=== PATIENT | female | born 1940 | race African-American/Black ===

== ENCOUNTER → 2016-09-20 | Outpatient (CLI) | payer MEDICARE, OTHER | LOC: RAD 11:03 | PROVIDERS: ATTEND Internal Medicine Medical Oncology | DX: C50.919 Malignant neoplasm of unspecified site of unspecified female breast (principal) | CPT/HCPCS: 78306; A9503; Q9969 ==

== ENCOUNTER → 2016-10-26 | Outpatient (CLI) | payer MEDICARE, OTHER ==
--- NOTE | 2016-10-26 18:15 | RADIOLOGY REPORT (SQ) ---
EXAM DESCRIPTION: CHEST PA/LAT COMPLETED DATE/TIME: 10/26/2016 5:51 pm REASON FOR STUDY: COUGH COMPARISON: November 2011 EXAM PARAMETERS: NUMBER OF VIEWS: two views TECHNIQUE: Digital Frontal and Lateral radiographic views of the chest acquired. RADIATION DOSE: NA LIMITATIONS: none FINDINGS: LUNGS AND PLEURA: No opacities, masses or pneumothorax. No pleural effusion. There are so me minimal linear densities in the right lung base which could represent subsegmental atelectasis or scarring. MEDIASTINUM AND HILAR STRUCTURES: No masses or contour abnormalities. HEART AND VASCULAR STRUCTURES: The configuration of the heart and mediastinal structures is unchanged . BONES: Thoracolumbar scoliosis is again identified with associated degenerative changes. HARDWARE: None in the chest. OTHER: Surgical clips are again identified in axillary region which are more numerous on the right as compared to the left IMPRESSION: No significant interval change. No acute findings. Other findings as noted above. TECHNICAL DOCUMENTATION: JOB ID: [id number] [employer]- All Rights Reserved
== END ==
LOC: RAD 17:35
PROVIDERS: ATTEND Family Medicine
DX: R05 Cough (principal)
CPT/HCPCS: 71020

== ENCOUNTER 2016-10-30 01:16 | Emergency (ER) | payer MEDICARE, OTHER ==
--- NOTE | 2016-10-30 04:09 | RADIOLOGY REPORT (SQ) ---
EXAM DESCRIPTION: HIP RIGHT AP/LATERAL COMPLETED DATE/TIME: 10/30/2016 3:50 am REASON FOR STUDY: fall injury COMPARISON: Left hip x-ray 11/23/2015. NUMBER OF VIEWS: Two views. TECHNIQUE: AP pelvis and additional frog-leg view of the right hip. LIMITATIONS: None. FINDINGS: There is no acute fracture or dislocation. The pelvic ring is intact. The bilateral hip joints are maintained. Degenerative changes in the visualized lower lumbar spine, at the symphysis p ubis and at the bilateral sacroiliac joints. Surgical clips are noted in the pelvis. IMPRESSION: No radiographic evidence of acute injury. TECHNICAL DOCUMENTATION: JOB ID: [id number] OH-64 2010 [employer]- All Rights Reserved
--- NOTE | 2016-10-30 04:25 | RADIOLOGY REPORT (SQ) ---
EXAM DESCRIPTION: RIBS LEFT W/PA CHEST COMPLETED DATE/TIME: 10/30/2016 3:50 am REASON FOR STUDY: fall injury . Posterior rib pain just inferior to the scapula. COMPARISON: Chest x-ray 10/26/2016. TECHNIQUE: Frontal view of the chest and additional views of the left ribs acquired. NUMBER OF VIEWS: Three view. LIMITATIONS: None. FINDINGS: FRONTAL CXR: No pneumothorax. No pleural effusion. No atelectasis or infiltrates. RIBS: No displaced rib fractures. OTHER: There is thoracolumbar scoliosis. Surgical clips are seen at the bilateral axillary regions. Partially visualized orthopedic hardware in the lower cervical spine. IMPRESSION: No pneumothorax. No displaced left-sided rib fractures. COMMENT: SITE OF TRAUMA/COMPLAINT MARKED/STAMP COMPLETED: NO. TECHNICAL DOCUMENTATION: JOB ID: [id number] OH-64 2010 [employer]- All Rights Reserved
--- NOTE | 2016-10-30 04:55 | RADIOLOGY REPORT (SQ) ---
EXAM DESCRIPTION: ANKLE RIGHT COMPLETE COMPLETED DATE/TIME: 10/30/2016 3:50 am REASON FOR STUDY: fall injury . Pain on the medial aspect. COMPARISON: None. NUMBER OF VIEWS: Three views. TECHNIQUE: AP, lateral, and oblique radiographic images acquired of the right ankle. LIMITATIONS: None. FINDINGS: MINERALIZATION: Normal. BONES: Faint calcifications are seen at the medial aspect of the talus and calcaneus on the AP view. Linear calcification at the plantar aspect of the calcaneus. Calcification at the insertion of the Achilles tendon. SOFT TISSUES: Diffuse soft tissue swelling at the ankle. No radiopaque foreign body. IMPRESSION: Soft tissue swelling at the right ankle. Faint calcifications at the medial aspect of t he talus and calcaneus, and linear calcification at the plantar aspect of the calcaneus, may represen t avulsion fractures. Please correlate with point tenderness. Calcification at the insertion of the Achilles tendon at the calcaneus, suggestive of tendonitis. TECHNICAL DOCUMENTATION: JOB ID: [id number] OH-[id number] 2010 [employer]- All Rights Reserved
--- NOTE | 2016-10-30 06:04 | ER Document Report ---
HPI - HPI Patient complains to provider of: stumbled and fell Onset: Just prior to arrival - midnight Onset/Duration: Sudden Pain Level: 2 Context: 76 yo was trying to get a water bottle out of case and when she stood up, stumbled due to difficulty bearing weight on left ankle due to arthritis, swelling. Also has pain in left lateral lower thoracic lumbar back-hx of severe scoliosis. Has walker but uses cane intdoors. Daughter is here with her and considering taking her [facility] with her. Dr koenig is PCP and she takes ultram for pain which is not helping much. Associated Symptoms: None Exacerbated by: Walking Relieved by: Denies Similar symptoms previously: Yes Recently seen / treated by doctor: No - ROS ROS below otherwise negative: Yes Systems Reviewed and Negative: Yes All other systems reviewed and negative - DERM Skin Color: Normal Past Medical History - General Information source: Patient - Social History Smoking Status: Never Smoker Frequency of alcohol use: None Drug Abuse: None Lives with: Alone Family History: Reviewed & Not Pertinent - Past Medical History Cardiac Medical History: Reports: Hx Hypercholesterolemia, Hx Hypertension Pulmonary Medical History: Reports: Hx COPD, Hx Pneumonia Endocrine Medical History: Reports: Hx Diabetes Mellitus Type 2 Renal/ Medical History: Denies: Hx Peritoneal Dialysis GI Medical History: Reports: Hx Gastroesophageal Reflux Disease Musculoskeltal Medical History: Reports Hx Arthritis, Reports Other - scoliosis Past Surgical History: Reports: Hx Hysterectomy, Hx Mastectomy - cancer, Hx Tonsillectomy Vertical Provider Document - CONSTITUTIONAL Agree With Documented VS: Yes Exam Limitations: No Limitations General Appearance: Mild Distress - when trying to ambulate - INFECTION CONTROL TRAVEL OUTSIDE OF THE [place] IN LAST 30 DAYS: No - HEENT HEENT: Normal ENT Exam - NECK Neck: Supple - RESPIRATORY Respiratory: Breath Sounds Normal, No Respiratory Distress O2 Sat by Pulse Oximetry: 92 - CARDIOVASCULAR Cardiovascular: Regular Rate, Regular Rhythm - GI/ABDOMEN Gastrointestinal: Abdomen Soft, Abdomen Non-Tender - MUSCULOSKELETAL/EXTREMETIES Musculoskeletal/Extremeties: Eccymosis - small red burise over low lumbar back that is mild tender. negative: Tender - left lower lateral ribs Notes: non hot swelling to right ankle (there before the fall) - NEURO Level of Consciousness: Awake, Alert Motor/Sensory: No Motor Deficit, No Sensory Deficit - DERM Integumentary: Warm, Dry Course - Re-evaluation Re-evalutation: 10/30/16 07:54 pt able to walk with her walker now with much less pain after the percocet started to work. 10/30/16 17:15 - Vital Signs Vital signs: Temp Pulse Resp BP Pulse Ox 99.1 F 76 18 139/84 H 92 10/30/16 01:24 10/30/16 01:24 10/30/16 01:24 10/30/16 01:24 10/30/16 01:24 Discharge - Discharge Clinical Impression: right ankle pain, Arthritis, left posterior lower back pain Scoliosis Qualifiers: Scoliosis type: idiopathic Idiopathic scoliosis type: other Spinal region: lumbar Qualified Code(s): M41.26 - Other idiopathic scoliosis, lumbar region Fall Qualifiers: Encounter type: initial encounter Qualified Code(s): W19.XXXA - Unspecified fall, initial encounter Condition: Good Disposition: HOME, SELF-CARE Instructions: Arthritis ([facility]) Additional Instructions: use your walker only DO NOT TAKE THE ULTRAM SINCE YOU ARE TAKING HYDROCODONE FOR PAIN see dr. koenig on monday for recheck to er if worse kenneth wrap to right ankle for support Prescriptions: Hydrocodone Bit/Acetaminophen [Hydrocodon-Acetaminophen 5-325] 1 each PO Q4HP PRN #30 tablet PRN Reason: Referrals: ANTHONY KOENIG MD [Primary Care Provider] - 10/31/16
[2016-10-30] MEDS ORDERED: OXYCODONE-ACETAMINOPHEN 5-325 MG TABLET PO ONE (06:31)
[2016-10-30 07:38] VITALS: BP 134/74
[2016-10-30] MEDS ORDERED: HYDROCODONE/ACETAMINOPHEN 5-325 MG 6 TAB/DSPK PO PRN (07:51)
== END 2016-10-30 08:08 | disposition home or self-care (01) ==
LOC: ER 01:16
DX: M41.26 Other idiopathic scoliosis, lumbar region (principal); M54.5 Low back pain; M25.572 Pain in left ankle and joints of left foot; M19.072 Primary osteoarthritis, left ankle and foot; M79.89 Other specified soft tissue disorders; M54.6 Pain in thoracic spine
CPT/HCPCS: 99283; 73610; 73502; 71101; A9270

== ENCOUNTER → 2016-11-28 | Outpatient (CLI) | payer MEDICARE, OTHER ==
--- NOTE | 2016-11-28 14:54 | RADIOLOGY REPORT (SQ) ---
EXAM DESCRIPTION: CHEST PA/LATERAL COMPLETED DATE/TIME: 11/28/2016 2:42 pm REASON FOR STUDY: COUGH M25.559 PAIN IN UNSPECIFIED HIP R05 COUGH M25.571 PAIN IN RIGHT ANKLE AND JOINTS OF RIGHT FOOT COMPARISON: 10/26/2016 NUMBER OF VIEWS: Two view TECHNIQUE: Frontal and lateral radiographic images of the chest acquired. LIMITATIONS: Wheelchair. FINDINGS: LUNGS AND PLEURA: Subsegmental airspace disease in the left lower lobe MEDIASTINUM AND HILAR STRUCTURES: Stable heart size and mediastinal structures. HEART AND VASCULAR STRUCTURES: Stable appearance. BONES: No acute findings. HARDWARE: Axillary clips. OTHER: No other significant finding. IMPRESSION: Atelectasis or early pneumonia left lower lobe. TECHNICAL DOCUMENTATION: JOB ID: [id number] [employer]- All Rights Reserved
--- NOTE | 2016-11-28 14:56 | RADIOLOGY REPORT (SQ) ---
EXAM DESCRIPTION: HIPS BILATERAL COMPLETED DATE/TIME: 11/28/2016 2:42 pm REASON FOR STUDY: PAIN IN UNSPEC HIP M25.559 PAIN IN UNSPECIFIED HIP R05 COUGH M25.571 PAIN IN RI GHT ANKLE AND JOINTS OF RIGHT FOOT COMPARISON: None. NUMBER OF VIEWS: Three views. TECHNIQUE: AP pelvis and additional frog-leg view of the right and left hip. LIMITATIONS: None. FINDINGS: There is joint space narrowing in both hips, left greater than right. No large osteophyte s. No evidence of AVN. IMPRESSION: Osteoarthritis. TECHNICAL DOCUMENTATION: JOB ID: [id number] [employer]- All Rights Reserved
--- NOTE | 2016-11-28 15:00 | RADIOLOGY REPORT (SQ) ---
EXAM DESCRIPTION: ANKLE RIGHT COMPLETE COMPLETED DATE/TIME: 11/28/2016 2:42 pm REASON FOR STUDY: PAIN IN RIGHT ANKLE AND JOINTS OF RIGHT FOOT M25.559 PAIN IN UNSPECIFIED HIP R05 COUGH M25.571 PAIN IN RIGHT ANKLE AND JOINTS OF RIGHT FOOT COMPARISON: 10/30/2016 NUMBER OF VIEWS: Three views. TECHNIQUE: AP, lateral, and oblique radiographic images acquired of the right ankle. LIMITATIONS: None. FINDINGS: MINERALIZATION: Normal. BONES: No acute fracture or dislocation. No worrisome bone lesions. JOINTS: No effusions. SOFT TISSUES: Faint soft tissue calcifications for cyst with no real interval change. There is consi derable soft tissue swelling around the ankle OTHER: No other significant finding. IMPRESSION: Soft tissue swelling with no fracture. Faintly defined soft tissue calcifications are u nchanged. TECHNICAL DOCUMENTATION: JOB ID: [id number] [employer]- All Rights Reserved
--- NOTE | 2016-11-28 15:02 | RADIOLOGY REPORT (SQ) ---
EXAM DESCRIPTION: FOOT RIGHT COMPLETE COMPLETED DATE/TIME: 11/28/2016 2:42 pm REASON FOR STUDY: PAIN IN RIGHT ANKLE AND JOINTS OF RIGHT FOOT M25.559 PAIN IN UNSPECIFIED HIP R05 COUGH M25.571 PAIN IN RIGHT ANKLE AND JOINTS OF RIGHT FOOT COMPARISON: None. NUMBER OF VIEWS: Three views. TECHNIQUE: AP, lateral and oblique radiographic images acquired of the right foot. LIMITATIONS: None. FINDINGS: MINERALIZATION: Normal. BONES: No acute fracture or dislocation. No worrisome bone lesions. JOINTS: There is marked hallux valgus. SOFT TISSUES: Soft tissue swelling around the ankle. Faintly defined soft tissue calcifications infe rior to the medial malleolus in the distal Achilles tendon adjacent to the plantar aspect of the calc aneus are once again seen. OTHER: No other significant finding. IMPRESSION: 1. Hallux valgus. 2. Soft tissue calcifications that are stable. Achilles and plantar tendinopathy are suggested. Po ssible prior soft tissue injury to the medial ligaments of the ankle appear TECHNICAL DOCUMENTATION: JOB ID: [id number] [employer]- All Rights Reserved
== END ==
LOC: OD 13:24
PROVIDERS: ATTEND Family Medicine
DX: M25.551 Pain in right hip (principal); M25.552 Pain in left hip; R05 Cough; M25.571 Pain in right ankle and joints of right foot
CPT/HCPCS: 71020; 73522

== ENCOUNTER 2016-11-30 13:49 | Inpatient (IN) | payer MEDICARE, OTHER ==
[2016-11-30] MEDS ORDERED: IPRATROPIUM/ALBUTEROL 0.5-2.5 MG/3 ML AMPUL NEB PRN (14:01)
[2016-11-30] MEDS ORDERED: GUAIFENESIN SYRP 200 MG/10 ML UDC PO PRN (14:01)
--- NOTE | 2016-11-30 14:59 | RADIOLOGY REPORT (SQ) ---
EXAM DESCRIPTION: CHEST PA/LAT COMPLETED DATE/TIME: 11/30/2016 2:42 pm REASON FOR STUDY: pnemonia COMPARISON: 10/26/2016 EXAM PARAMETERS: NUMBER OF VIEWS: two views TECHNIQUE: Digital Frontal and Lateral radiographic views of the chest acquired. RADIATION DOSE: NA LIMITATIONS: none FINDINGS: LUNGS AND PLEURA: No opacities, masses or pneumothorax. No pleural effusion. MEDIASTINUM AND HILAR STRUCTURES: No masses or contour abnormalities. HEART AND VASCULAR STRUCTURES: Heart normal size. No evidence for failure. BONES: No acute findings. HARDWARE: There are surgical clips in the right axilla. OTHER: No other significant finding. IMPRESSION: NO SIGNIFICANT RADIOGRAPHIC FINDING IN THE CHEST. TECHNICAL DOCUMENTATION: JOB ID: [id number] [employer]- All Rights Reserved
[2016-11-30] MEDS ORDERED: AZITHROMYCIN 250 MG TABLET PO ONE (15:00)
[2016-11-30 15:21] LABS: ABSOLUTE LYMPHOCYTES (AUTO) 0.7 10^3/uL (0.5-4.7); ABSOLUTE MONOCYTES (AUTO) 0.7 10^3/uL (0.1-1.4); ABSOLUTE NEUT (AUTO) 7.6 10^3/uL (1.7-8.2); BASOPHILS % (AUTO) 0.1 % (0-2); HEMOGLOBIN 10.3 g/dL (12.0-15.5); HGB HCT DIFFERENCE -2.1; LYMPHOCYTES % (AUTO) 7.6 % (13-45); MEAN CORPUSCULAR HEMOGLOBIN 20.7 pg (27.0-33.4); MEAN CORPUSCULAR HGB CONC 31.2 g/dL (32.0-36.0); MEAN CORPUSCULAR VOLUME 66 fl (80-97); MONOCYTES % (AUTO) 7.6 % (3-13); RED BLOOD COUNT 4.97 10^6/uL (3.72-5.28); RED CELL DISTRIBUTION WIDTH 16.5 % (11.5-14.0); SEGMENTED NEUTROPHILS % (AUTO) 84.7 % (42-78)
[2016-11-30 15:33] LABS: ALANINE AMINOTRANSFERASE 29 U/L (9-52); ALBUMIN 3.5 g/dL (3.5-5.0); ALKALINE PHOSPHATASE 81 U/L (38-126); ANION GAP 12 (5-19); ASPARTATE AMINO TRANSFERASE 26 U/L (14-36); BILIRUBIN,DIRECT 0.3 mg/dL (0.0-0.4); BLOOD UREA NITROGEN 5 mg/dL (7-20); CARBON DIOXIDE 30 mmol/L (22-30); CHLORIDE 87 mmol/L (98-107); CREATINE KINASE 154 U/L (30-135); CREATININE RESULT 0.51 mg/dL (0.52-1.25); GLUCOSE 111 mg/dL (75-110); POTASSIUM 3.2 mmol/L (3.6-5.0); TOTAL PROTEIN 7.1 g/dL (6.3-8.2)
[2016-11-30 15:48] LABS: CALCIUM 9.4 mg/dL (8.4-10.2)
--- NOTE | 2016-11-30 15:54 | PDOC H&P ---
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 This is a 76-year-old female with a history of the type 2 diabetes history of the hypertension and severe osteoarthritis and a history of the bilateral breast cancerAnd a spinal stenosis and multiple other medical problem came to my office last week because of the cough and a fever and generalized weakness and ankle swellingAnd the patient's had a outpatient chest x-ray was done with so the questionable left-sided pneumoniaAnd patient was started on the Keflex and Zithromax Patient's also had a colonoscopy done today and according to the GI was all stable but patient is feeling very weak and came to the in my ofAnd according to the Daughter patient unable to walk and patient still have a persistent fever and patient still complaining of a cough and decided to admit in the hospital for further IV antibiotic and further evaluations Patient have a significant history of the breast cancers status post surgery and patient have a recently a PET scan was done was all stable and further workup done by oncology Dr. 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 Patient also had a C-spine surgery done in 2011 for the severe spinal stenosis Patients denied any chest pain denied any shortness of the breath Patient stopped taking the Celebrex and hydrochlorothiazide and other medications since last several days due to the upcoming colonoscopy and the Celebrex was stopped almost a week they may be a contributed patient have a some swelling in the joint Past Medical History Cardiac Medical History: Reports: Hyperlipidema, Hypertension Pulmonary Medical History: Reports: Chronic Obstructive Pulmonary Disease (COPD) , Pneumonia Endocrine Medical History: Reports: Diabetes Mellitus Type 2, Hypothyroidism Malignancy Medical History: Reports: Breast Cancer GI Medical History: Reports: Gastroesophageal Reflux Disease Musculoskeltal Medical History: Reports: Arthritis Hematology: Reports: Anemia Past Surgical History Past Surgical History: Reports: Hysterectomy, Mastectomy - cancer, Tonsillectomy Social History Information Source: Patient Lives with: Alone, Family Smoking Status: Never Smoker Frequency of Alcohol Use: None Hx Recreational Drug Use: No Hx Prescription Drug Abuse: No Family History Family History: Reviewed & Not Pertinent Parental Family History Reviewed: Yes Children Family History Reviewed: Yes Sibling(s) Family History Reviewed.: Yes Medication/Allergy Home Medications: Ascorbic Acid [Vitamin C] 04/06/12 Atenolol [Tenormin 0.5 mg/1 mL] 0.5 mg IV 04/06/12 Atorvastatin Calcium [Lipitor 10 mg Tablet] 04/06/12 Celecoxib [Celebrex 50 mg Capsule] 04/06/12 Exemestane [Aromasin] 04/06/12 Fexofenadine HCl [Joi Odt] 04/06/12 Gabapentin [Fanatrex] 04/06/12 Ibandronate Sodium [Boniva] 04/06/12 Letrozole 2.5 mg PO 04/06/12 Levothyroxine Sodium [Synthroid 0.05 mg Tablet] 04/06/12 Metformin HCl [Glucophage XR 500 mg Tablet] 04/06/12 Nitroglycerin [Nitro-Dur 10 mg (0.4MG/Hr) Transdermal Patch] 04/06/12 Omeprazole [First-Omeprazole] 04/06/12 Tramadol HCl 04/06/12 Trandolapril [Mavik] 04/06/12 Triamcinolone Acetonide [Aristocort 0.025% Cream] 04/06/12 Hydrocodone Bit/Acetaminophen [Hydrocodon-Acetaminophen 5-325] 1 each PO Q4HP PRN #30 tablet 10/30/16 Allergies/Adverse Reactions: No Known Allergies Allergy (Unverified 10/30/16 01:24) Review of Systems Constitutional: PRESENT: fatigue, weakness. ABSENT: chills, fever(s), headache( s), weight gain, weight loss Eyes: ABSENT: visual disturbances Ears: ABSENT: hearing changes Cardiovascular: ABSENT: chest pain, dyspnea on exertion, edema, orthropnea, palpitations Respiratory: ABSENT: cough, hemoptysis Gastrointestinal: ABSENT: abdominal pain, constipation, diarrhea, hematemesis, hematochezia, nausea, vomiting Genitourinary: ABSENT: dysuria, hematuria Musculoskeletal: PRESENT: back pain. ABSENT: joint swelling Integumentary: ABSENT: rash, wounds Neurological: ABSENT: abnormal gait, abnormal speech, confusion, dizziness, focal weakness, syncope Psychiatric: ABSENT: anxiety, depression, homidical ideation, suicidal ideation Endocrine: ABSENT: cold intolerance, heat intolerance, menstrual abnormalities, polydipsia, polyuria Hematologic/Lymphatic: ABSENT: easy bleeding, easy bruising, lymphadenopathy Physical Exam General appearance: PRESENT: no acute distress, well-developed, well-nourished Head exam: PRESENT: atraumatic, normocephalic Eye exam: PRESENT: conjunctiva pink, EOMI, PERRLA. ABSENT: scleral icterus Ear exam: PRESENT: normal external ear exam Mouth exam: PRESENT: moist, tongue midline Neck exam: PRESENT: full ROM. ABSENT: carotid bruit, JVD, lymphadenopathy, thyromegaly Respiratory exam: PRESENT: clear to auscultation solitario Cardiovascular exam: PRESENT: RRR. ABSENT: diastolic murmur, rubs, systolic murmur Pulses: PRESENT: normal dorsalis pedis pul, +2 pedal pulses bilateral Vascular exam: PRESENT: normal capillary refill GI/Abdominal exam: PRESENT: normal bowel sounds, soft. ABSENT: distended, guarding, mass, organolmegaly, rebound, tenderness Rectal exam: PRESENT: deferred Extremities exam: PRESENT: joint swelling. ABSENT: pedal edema Musculoskeletal exam: PRESENT: other Neurological exam: PRESENT: alert, awake, oriented to person, oriented to place , oriented to time, oriented to situation, CN II-XII grossly intact. ABSENT: motor sensory deficit Psychiatric exam: PRESENT: appropriate affect, normal mood. ABSENT: homicidal ideation, suicidal ideation Skin exam: PRESENT: dry, intact, warm. ABSENT: cyanosis, rash Results Laboratory Results: 11/30/16 14:59 11/30/16 14:59 WBC 9.0 RBC 4.97 Hgb 10.3 L Hct 33.0 L MCV 66 L MCH 20.7 L MCHC 31.2 L RDW 16.5 H Plt Count 281 Seg Neutrophils % 84.7 H Lymphocytes % 7.6 L Monocytes % 7.6 Eosinophils % 0.0 Basophils % 0.1 Absolute Neutrophils 7.6 Absolute Lymphocytes 0.7 Absolute Monocytes 0.7 Absolute Eosinophils 0.0 Absolute Basophils 0.0 Impressions: Chest X-Ray 11/30/16 14:03 IMPRESSION: NO SIGNIFICANT RADIOGRAPHIC FINDING IN THE CHEST. Assessment & Plan - Diagnosis (1) Pneumonia Qualifiers: Pneumonia type: due to unspecified organism Laterality: left Is this a current diagnosis for this admission?: YesPlan: Start the patient on the Rochin and Zithromax while patients have a persistent cough and fever to fill out patient's p.o. treatment (2) Fever Qualifiers: Fever type: unspecified Qualified Code(s): R50.9 - Fever, unspecified Is this a current diagnosis for this admission?: YesPlan: Most likely are due to the pneumonia will get the blood culture urine culture (3) Inflammatory arthritis Is this a current diagnosis for this admission?: YesPlan: Patient used to take the Celebrex and recently stop it due to the upcoming colonoscopy they may contribute the patient have a swelling in the lower extremity and hand will restart the Celebrex as per discussed with the GI today (4) Hypertension Qualifiers: Hypertension type: essential hypertension Qualified Code(s): I10 - Essential (primary) hypertension Is this a current diagnosis for this admission?: YesPlan: Currently stable (5) Type 2 diabetes mellitus Qualifiers: Diabetes mellitus complication status: with unspecified complications Is this a current diagnosis for this admission?: YesPlan: Continues a sliding scale some continues current medications (6) Hyperlipidemia Qualifiers: Hyperlipidemia type: unspecified Qualified Code(s): E78.5 - Hyperlipidemia, unspecified Is this a current diagnosis for this admission?: YesPlan: Currently hold the Lipitor due to the weakness and joint pain (7) Spinal stenosis Qualifiers: Spinal region: unspecified Qualified Code(s): M48.00 - Spinal stenosis, site unspecified Is this a current diagnosis for this admission?: YesPlan: If the patient is having difficulty in walking up to restart the Celebrex consider the MRI of the LS spine for further evaluations (8) Anemia Qualifiers: Anemia type: unspecified type Qualified Code(s): D64.9 - Anemia, unspecified Is this a current diagnosis for this admission?: YesPlan: Currently follow the hematology and the GI (9) Hypothyroidism Qualifiers: Hypothyroidism type: unspecified Qualified Code(s): E03.9 - Hypothyroidism, unspecified Is this a current diagnosis for this admission?: YesPlan: Check a TSH and free T4 (10) Coronary artery disease Qualifiers: Coronary Disease-Associated Artery/Lesion type: unspecified vessel or lesion type Is this a current diagnosis for this admission?: YesPlan: Patient is currently followed Dr. Duggan in the last year stress test and echo was all stable (11) Weakness Is this a current diagnosis for this admission?: YesPlan: Will get the physical therapy and discussed with the daughter patients at this points preferred to go to the rehab because of ongoing problems and the daughter lives in the [place] and patient does not have any family member here - Time Time Spent: 50 to 70 Minutes Medications reviewed and adjusted accordingly: Yes Anticipated discharge: SNF Within: Other - Inpatient Certification Medical Necessity: Need Close Monitoring Due to Risk of Patient Decompensation, Need For IV Fluids, Need for IV Antibiotics Post Hospital Care: D/C [employer] Documentation - Plan Summary Plan Summary: d/w daughter and pt admit in [facility]
[2016-11-30 15:56] LABS: ERYTHROCYTE SEDIMENTATION RATE 102 mm/hr (0-30)
[2016-11-30] MEDS ORDERED: GLUCAGON,HUMAN RECOMB 1 MG INJ IM PRN (16:05)
[2016-11-30] MEDS ORDERED: INSULIN LISPRO 100 UNIT/ML 3 ML VIAL SUBCUT PRN (16:05)
[2016-11-30] MEDS ORDERED: DEXTROSE 40% GEL 15 GM TUBE PO PRN ×2 (16:05)
[2016-11-30] MEDS ORDERED: DEXTROSE 50%-WATER 25 GM/50 ML DISP.SYRIN IV PRN ×2 (16:05)
[2016-11-30] MEDS ORDERED: POTASSIUM CHLORIDE 10 MEQ TABLET.SA PO ONE (18:00)
[2016-11-30] MEDS: ACETAMINOPHEN 325 MG TABLET PO PRN (19:41)
--- NOTE | 2016-11-30 20:30 | EKG REPORT ---
SEVERITY:- ABNORMAL ECG - SINUS RHYTHM PROBABLE LEFT ATRIAL ABNORMALITY LEFT AXIS DEVIATION LEFT VENTRICULAR HYPERTROPHY : Confirmed by: Solomon Ferrara MD 30-Nov-2016 20:30:32
[2016-11-30] MEDS: CEFTRIAXONE 1 GM/D5W RTU 1 GM/50 ML RTUPB IV SCH (20:50)
[2016-11-30] MEDS: NORMAL SALINE 1000 ML 1,000 ML IV PRN (20:50)
[2016-11-30] MEDS: GUAIFENESIN 600 MG TABLET.SA PO SCH (21:02)
[2016-12-01] MEDS: ACETAMINOPHEN 325 MG TABLET PO PRN (04:27)
[2016-12-01] MEDS ORDERED: TRAMADOL HCL 50 MG TABLET PO PRN (06:32)
[2016-12-01] MEDS ORDERED: LANSOPRAZOLE 15 MG TAB.RAP.DR PO ONE (07:00)
[2016-12-01 07:32] LABS: ANION GAP 8 (5-19); BLOOD UREA NITROGEN 6 mg/dL (7-20); CALCIUM 9.1 mg/dL (8.4-10.2); CARBON DIOXIDE 31 mmol/L (22-30); CHLORIDE 96 mmol/L (98-107); CREATININE RESULT 0.46 mg/dL (0.52-1.25); GLUCOSE 93 mg/dL (75-110); POTASSIUM 3.3 mmol/L (3.6-5.0); SODIUM 134.9 mmol/L (137-145)
[2016-12-01] MEDS: METFORMIN HCL 500 MG TABLET PO SCH ×2 (08:29→16:59)
[2016-12-01] MEDS: LEVOTHYROXINE SODIUM 0.088 MG TABLET PO SCH (08:30)
[2016-12-01] MEDS ORDERED: POTASSIUM CHLORIDE 10 MEQ TABLET.SA PO ONE (09:15)
[2016-12-01] MEDS ORDERED: DESONIDE TOP SCH (10:00)
[2016-12-01] MEDS ORDERED: TRANDOLAPRIL 4 MG PO SCH (10:00)
[2016-12-01] MEDS ORDERED: CELECOXIB 100 MG CAPSULE PO SCH (10:00)
[2016-12-01] MEDS ORDERED: LEVOTHYROXINE SODIUM 0.088 MG TABLET PO SCH (10:00)
[2016-12-01] MEDS ORDERED: TRIAMCINOLONE ACETONIDE NASL SCH (10:00)
--- NOTE | 2016-12-01 10:26 | RADIOLOGY REPORT (SQ) ---
EXAM DESCRIPTION: CT LUMBAR SPINE WITHOUT COMPLETED DATE/TIME: 12/01/2016 9:56 am REASON FOR STUDY: back pain J18.0 BRONCHOPNEUMONIA, UNSPECIFIED ORGANISM R06.02 SHORTNESS OF AWAIS TH R50.9 FEVER, UNSPECIFIED COMPARISON: Lumbar spine plain films 11/23/2015 CT abdomen pelvis 02/12/2016 Whole-body bone scan 09/20/2016 TECHNIQUE: Axial images acquired through the lumbar spine without intravenous contrast. Images revi ewed with lung, soft tissue and bone windows. Reconstructed coronal and sagittal MPR images reviewed . All images stored on PACS. All CT scanners at this facility use dose modulation, iterative reconstruction, and/or weight based d osing when appropriate to reduce radiation dose to as low as reasonably achievable (ALARA). [facility]: Dose Right [facility]: CareDose [facility]: Dose Right [facility]: Teradose 4D [facility]: [employer] RADIATION DOSE: Up-to-date CT equipment and radiation dose reduction techniques were employed. CTDIv ol: 15.6 mGy. DLP: 402 mGy-cm. mGy. LIMITATIONS: None. FINDINGS: SEGMENTATION: Normal. No transitional anatomy. ALIGNMENT: Convex leftward lumbar curvature, grade 1 anterolisthesis of L4 over L5. VERTEBRAL BODIES: No fractures. No dislocation. No acute findings. DISCS: At T12-L1, there is rightward rotation of T12 over L1. No significant central or foraminal en croachment. At L1-2, mild diffuse posterior disc bulging and moderate bilateral facet hypertrophy is present with out significant central stenosis. Mild bilateral foraminal narrowing is present. . At L2-3, broad diffuse posterior disc bulge and bony spurring is present, with moderate bilateral fac et and ligament hypertrophy. Mild central canal stenosis. High-grade right, mild left foraminal maria r rowing from bony spurring. At L3-4, moderate to marked central canal stenosis results from broad diffuse disc bulge and bony spu rring and bulky asymmetric facet hypertrophy right greater than left. Moderate right foraminal narro wing is present from foraminal and lateral disc bulge. Mild left foraminal narrowing. At L4-5, 25% anterolisthesis of L4 over L5 is present related to advanced bilateral facet arthropathy . There is moderate central canal stenosis, moderate right and moderate left foraminal narrowing. At L5-S1, no central or foraminal stenosis is present. Mild bilateral facet hypertrophy. PEDICLES, TRANSVERSE PROCESSES: No fractures. FACETS, POSTERIOR ELEMENTS: No fractures. No dislocation. Multilevel arthropathy of the facets. HARDWARE: None in the spine. VISUALIZED RIBS: No fractures. SOFT TISSUES: No significant or acute finding in adjacent soft tissues. OTHER: No other significant finding. IMPRESSION: Significant central canal stenosis at L3-4 and L4-5 TECHNICAL DOCUMENTATION: JOB ID: [id number] Quality ID # [id number]: Final reports with documentation of one or more dose reduction techniques (e.g., Au tomated exposure control, adjustment of the mA and/or kV according to patient size, use of iterative reconstruction technique) 2010 [email or web address]- All Rights Reserved
[2016-12-01] MEDS: ENALAPRIL MALEATE 10 MG TABLET PO SCH (10:42)
[2016-12-01] MEDS: AZITHROMYCIN 250 MG TABLET PO SCH (10:42)
[2016-12-01] MEDS: GUAIFENESIN 600 MG TABLET.SA PO SCH ×2 (10:42→21:34)
[2016-12-01] MEDS: PREDNISONE 20 MG TABLET PO SCH (10:43)
[2016-12-01] MEDS: CALCIUM CARBONATE 500 MG TABLET PO SCH (10:43)
[2016-12-01] MEDS: ASPIRIN 81 MG TABLET, ENT COATED PO SCH (10:47)
[2016-12-01] MEDS: POLYETHYLENE GLYCOL 3350 POWDER 17 GM/1 PACKET PO SCH ×2 (10:48→18:03)
[2016-12-01] MEDS: GABAPENTIN 300 MG CAPSULE PO SCH ×2 (10:48→21:34)
[2016-12-01] MEDS: ENOXAPARIN SODIUM INJ 40 MG/0.4 ML DISP.SYRIN SUBCUT SCH (10:48)
[2016-12-01] MEDS: FLUTICASONE NASAL SPRAY 50 MCG/SPRY 120 SPRAY/16 GM NASL SCH (10:48)
[2016-12-01] MEDS: CYCLOSPORINE 0.05% OPH EMULSIO 0.4 ML DROPERETTE OU SCH ×2 (10:49→18:03)
[2016-12-01] MEDS: CELECOXIB 100 MG CAPSULE PO SCH (10:49)
--- NOTE | 2016-12-01 12:12 | PDOC PROGRESS REPORT ---
Subjective Progress Note for:: 12/01/16 Subjective:: Patient is currently feeling better. Patient's chest x-ray is all clear patient 's sodium level is also stablePatient still feeling weak and a complaint for joint pain. Patient's denied any chest pain denied any shortness of the breath patient's cough is also improving Patient's sed rate is elevated 100 range Patient see her Dr. De Luna the product merchandiser In the pastAnd suggest no sign of any rheumatoid Physical Exam Vital Signs: Temp Pulse Resp BP Pulse Ox 98.5 F 70 18 135/67 H 98 12/01/16 08:00 12/01/16 08:00 12/01/16 08:00 12/01/16 08:00 12/01/16 08:00 Intake & Output 11/30/16 12/01/16 12/02/16 06:59 06:59 06:59 Intake Total 1210 Output Total 500 Balance 710 Weight 76.6 kg General appearance: PRESENT: no acute distress Eye exam: PRESENT: PERRLA Mouth exam: PRESENT: neck supple Respiratory exam: PRESENT: clear to auscultation solitario Cardiovascular exam: PRESENT: +S1, +S2 GI/Abdominal exam: PRESENT: normal bowel sounds, soft Extremities exam: ABSENT: pedal edema Neurological exam: PRESENT: alert, awake, oriented to person, oriented to place , oriented to time, oriented to situation, CN II-XII grossly intact Results Laboratory Results: 11/30/16 14:59 12/01/16 07:00 11/30/16 11/30/16 12/01/16 14:59 14:59 07:00 WBC 9.0 RBC 4.97 Hgb 10.3 L Hct 33.0 L MCV 66 L MCH 20.7 L MCHC 31.2 L RDW 16.5 H Plt Count 281 Seg Neutrophils % 84.7 H Lymphocytes % 7.6 L Monocytes % 7.6 Eosinophils % 0.0 Basophils % 0.1 Absolute Neutrophils 7.6 Absolute Lymphocytes 0.7 Absolute Monocytes 0.7 Absolute Eosinophils 0.0 Absolute Basophils 0.0 Sodium 129.0 L 134.9 L Potassium 3.2 L 3.3 L Chloride 87 L 96 L Carbon Dioxide 30 31 H Anion Gap 12 8 BUN 5 L 6 L Creatinine 0.51 L 0.46 L Est GFR ( Amer) > 60 > 60 Est GFR (Non-Af Amer) > 60 > 60 Glucose 111 H 93 Calcium 9.4 9.1 Total Bilirubin 1.0 AST 26 ALT 29 Alkaline Phosphatase 81 Total Protein 7.1 Albumin 3.5 11/30/16 11/30/16 14:59 14:59 Creatine Kinase 154 H NT-Pro-B Natriuret Pep 93 Impressions: Chest X-Ray 11/30/16 14:03 IMPRESSION: NO SIGNIFICANT RADIOGRAPHIC FINDING IN THE CHEST. Lumbar Spine CT 12/01/16 00:00 IMPRESSION: Significant central canal stenosis at L3-4 and L4-5 Assessment & Plan - Diagnosis (1) Pneumonia Qualifiers: Pneumonia type: due to unspecified organism Laterality: left Is this a current diagnosis for this admission?: YesPlan: Continues to current IV antibiotic (2) Fever Qualifiers: Fever type: unspecified Qualified Code(s): R50.9 - Fever, unspecified Is this a current diagnosis for this admission?: YesPlan: Is all improving (3) Inflammatory arthritis Is this a current diagnosis for this admission?: YesPlan: Will try the prednisone 20 mg p.o. daily with a short course which help the patient's for this arthritisPatients may need to these see a product merchandiser as outpatients (4) Hypertension Qualifiers: Hypertension type: essential hypertension Qualified Code(s): I10 - Essential (primary) hypertension Is this a current diagnosis for this admission?: YesPlan: Currently stable (5) Type 2 diabetes mellitus Qualifiers: Diabetes mellitus complication status: with unspecified complications Is this a current diagnosis for this admission?: YesPlan: Continues a sliding scale some continues current medications (6) Hyperlipidemia Qualifiers: Hyperlipidemia type: unspecified Qualified Code(s): E78.5 - Hyperlipidemia, unspecified Is this a current diagnosis for this admission?: YesPlan: Currently hold the Lipitor due to the weakness and joint pain (7) Spinal stenosis Qualifiers: Spinal region: unspecified Qualified Code(s): M48.00 - Spinal stenosis, site unspecified Is this a current diagnosis for this admission?: YesPlan: Patient CT of the lumbar spine so the significant spinal stenosis needs to be further evaluate patient already seen for that at [facility] (8) Anemia Qualifiers: Anemia type: unspecified type Qualified Code(s): D64.9 - Anemia, unspecified Is this a current diagnosis for this admission?: YesPlan: Currently follow the hematology and the GI (9) Hypothyroidism Qualifiers: Hypothyroidism type: unspecified Qualified Code(s): E03.9 - Hypothyroidism, unspecified Is this a current diagnosis for this admission?: YesPlan: Check a TSH and free T4 (10) Coronary artery disease Qualifiers: Coronary Disease-Associated Artery/Lesion type: unspecified vessel or lesion type Is this a current diagnosis for this admission?: YesPlan: Patient is currently followed Dr. Duggan in the last year stress test and echo was all stable (11) Weakness Is this a current diagnosis for this admission?: YesPlan: Most likely due to the inflammatory arthritis with the pneumonia will get the physical therapy start and patients definitely needs to go to the rehab as per discussed with the patient's and the sister and the daughter about the patient' s current condition and all the test reports - Time Time Spent with patient: 15-24 minutes Medications reviewed and adjusted accordingly: Yes Anticipated discharge: SNF Within: Other - Inpatient Certification Medical Necessity: Need Close Monitoring Due to Risk of Patient Decompensation, Need For IV Fluids, Need for IV Antibiotics Post Hospital Care: D/C Panel Assembler Documentation - Plan Summary Plan Summary: Continues to current medications
[2016-12-01] MEDS: NORMAL SALINE 1000 ML 1,000 ML IV PRN (17:00)
[2016-12-01] MEDS: CETIRIZINE 5 MG TABLET PO SCH (18:03)
[2016-12-01] MEDS: CEFTRIAXONE 1 GM/D5W RTU 1 GM/50 ML RTUPB IV SCH (18:03)
[2016-12-02 05:37] LABS: ABSOLUTE LYMPHOCYTES (AUTO) 0.9 10^3/uL (0.5-4.7); ABSOLUTE MONOCYTES (AUTO) 0.5 10^3/uL (0.1-1.4); BASOPHILS % (AUTO) 0.3 % (0-2); EOSINOPHILS % (AUTO) 0.5 % (0-6); HEMATOCRIT 32.5 % (36.0-47.0); HEMOGLOBIN 9.8 g/dL (12.0-15.5); HGB HCT DIFFERENCE -3.1; LYMPHOCYTES % (AUTO) 10.8 % (13-45); MEAN CORPUSCULAR HEMOGLOBIN 20.4 pg (27.0-33.4); MEAN CORPUSCULAR HGB CONC 30.1 g/dL (32.0-36.0); MEAN CORPUSCULAR VOLUME 68 fl (80-97); MONOCYTES % (AUTO) 5.8 % (3-13); RED BLOOD COUNT 4.78 10^6/uL (3.72-5.28); RED CELL DISTRIBUTION WIDTH 16.6 % (11.5-14.0); SEGMENTED NEUTROPHILS % (AUTO) 82.6 % (42-78); WHITE BLOOD COUNT 8.4 10^3/uL (4.0-10.5)
[2016-12-02 06:05] LABS: ANION GAP 7 (5-19); BLOOD UREA NITROGEN 10 mg/dL (7-20); CALCIUM 9.3 mg/dL (8.4-10.2); CARBON DIOXIDE 30 mmol/L (22-30); CHLORIDE 99 mmol/L (98-107); CREATININE RESULT 0.51 mg/dL (0.52-1.25); GLUCOSE 86 mg/dL (75-110); SODIUM 135.9 mmol/L (137-145)
[2016-12-02] MEDS: LANSOPRAZOLE 15 MG TAB.RAP.DR PO SCH (06:30)
[2016-12-02] MEDS: METFORMIN HCL 500 MG TABLET PO SCH ×2 (07:38→17:24)
[2016-12-02] MEDS: LEVOTHYROXINE SODIUM 0.088 MG TABLET PO SCH (07:38)
[2016-12-02] MEDS: ASPIRIN 81 MG TABLET, ENT COATED PO SCH (10:16)
[2016-12-02] MEDS: GUAIFENESIN 600 MG TABLET.SA PO SCH ×2 (10:16→22:16)
[2016-12-02] MEDS: ENALAPRIL MALEATE 10 MG TABLET PO SCH (10:16)
[2016-12-02] MEDS: CALCIUM CARBONATE 500 MG TABLET PO SCH (10:16)
[2016-12-02] MEDS: AZITHROMYCIN 250 MG TABLET PO SCH (10:20)
[2016-12-02] MEDS: PREDNISONE 20 MG TABLET PO SCH (10:20)
[2016-12-02] MEDS: CYCLOSPORINE 0.05% OPH EMULSIO 0.4 ML DROPERETTE OU SCH ×2 (10:21→17:25)
[2016-12-02] MEDS: ENOXAPARIN SODIUM INJ 40 MG/0.4 ML DISP.SYRIN SUBCUT SCH (10:21)
[2016-12-02] MEDS: CELECOXIB 100 MG CAPSULE PO SCH (10:21)
[2016-12-02] MEDS: GABAPENTIN 300 MG CAPSULE PO SCH ×2 (10:21→22:16)
[2016-12-02] MEDS: POLYETHYLENE GLYCOL 3350 POWDER 17 GM/1 PACKET PO SCH ×2 (10:35→17:33)
[2016-12-02] MEDS: FLUTICASONE NASAL SPRAY 50 MCG/SPRY 120 SPRAY/16 GM NASL SCH (10:35)
[2016-12-02 13:38] LABS: JO-1 ANTIBODY (ANACOMP) <0.2 AI (0.0-0.9)
--- NOTE | 2016-12-02 13:50 | PDOC TRANSFER SUMMARY ---
General - Admit/Disc Date/PCP Admission Date/Primary Care Provider: 11/30/16 14:01 ANTHONY MILLER MD Discharge Date: 12/03/16 - Discharge Diagnosis (1) Pneumonia Is this a current diagnosis for this admission?: YesSummary: stable (2) Fever Is this a current diagnosis for this admission?: YesSummary: all resolved (3) Inflammatory arthritis Is this a current diagnosis for this admission?: YesSummary: stable and pt need to see out pt rhematology (4) Hypertension Is this a current diagnosis for this admission?: Yes (5) Type 2 diabetes mellitus Is this a current diagnosis for this admission?: YesSummary: cont ss (6) Hyperlipidemia Is this a current diagnosis for this admission?: YesSummary: hold lipitor now due to joint pain and wekness (7) Spinal stenosis Is this a current diagnosis for this admission?: YesSummary: f/u out pt spine clinic (8) Anemia Is this a current diagnosis for this admission?: YesSummary: pt see spool maker (9) Hypothyroidism Is this a current diagnosis for this admission?: Yes (10) Coronary artery disease Is this a current diagnosis for this admission?: Yes (11) Weakness Is this a current diagnosis for this admission?: Yes (12) Urinary tract infection Is this a current diagnosis for this admission?: YesSummary: Enterococcus organisms and continues the Keflex - Additional Information Discharge Diet: Diabetic Discharge Activity: Activity As Tolerated Home Medications: Aspirin [Ecotrin 81 mg EC Tablet] 81 mg PO DAILY 11/30/16 Calcium Carbonate [Calcium] 500 mg PO DAILY 11/30/16 Cyclosporine 0.05% Oph Emulsio [Restasis 0.05% Oph Emulsion Pf 0.4 ml] 1 drop OU BID 11/30/16 Desonide [Desowen] 1 applic TOP BID 11/30/16 Diclofenac Sodium [Voltaren] 4 gm TOP QIDP PRN 11/30/16 Ferrous Sulfate [Feosol 325 mg Tablet] 325 mg PO DAILY 11/30/16 Gabapentin [Neurontin 300 mg Capsule] 300 mg PO Q12 11/30/16 Levocetirizine Dihydrochloride [Xyzal] 5 mg PO QPM 11/30/16 Levothyroxine Sodium [Synthroid] 88 mcg PO DAILY 11/30/16 Metformin HCl [Glucophage] 500 mg PO BIDBS 11/30/16 Omeprazole 20 mg PO DAILY 11/30/16 Polyethylene Glycol 3350 [Miralax Powder 17 gm/Packet] 17 gm PO BID 11/30/16 Tramadol HCl [Ultram 50 mg Tablet] 50 mg PO Q6HP PRN 11/30/16 Trandolapril [Mavik] 4 mg PO DAILY 11/30/16 Triamcinolone Acetonide [Nasacort Aq] 2 spray NASL DAILY 11/30/16 Ascorbic Acid [Vitamin C 500 mg Tablet] 500 mg PO DAILY 12/01/16 Celecoxib [Celebrex 100 mg Capsule] 100 mg PO DAILY #0 12/02/16 Cephalexin Monohydrate [Keflex 500 mg Capsule] 500 mg PO TID #15 capsule Guaifenesin [Mucinex Sr 600 mg Tablet.sa] 600 mg PO Q12 #0 tablet.sa 12/02/16 Insulin Lispro [Humalog Insulin (Lispro) 100 unit/mL] 0 - 12 unit SUBCUT ACHSP PRN #0 unit 12/02/16 Ipratropium/Albuterol Sulfate [Duoneb 3 ml Ampul] 3 ml NEB RTQ8HP PRN #0 vial.neb 12/02/16 Prednisone [Deltasone 20 mg Tablet] 10 mg PO DAILY #5 tablet 12/02/16 History of Present Illness Admission Date/PCP: 11/30/16 14:01 ANTHONY MILLER MD History of Present Illness: 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 This is a 76-year-old female with a history of the type 2 diabetes history of the hypertension and severe osteoarthritis and a history of the bilateral breast cancerAnd a spinal stenosis and multiple other medical problem came to my office last week because of the cough and a fever and generalized weakness and ankle swellingAnd the patient's had a outpatient chest x-ray was done with so the questionable left-sided pneumoniaAnd patient was started on the Keflex and Zithromax Patient's also had a colonoscopy done today and according to the GI was all stable but patient is feeling very weak and came to the in my ofAnd according to the Daughter patient unable to walk and patient still have a persistent fever and patient still complaining of a cough and decided to admit in the hospital for further IV antibiotic and further evaluations Patient have a significant history of the breast cancers status post surgery and patient have a recently a PET scan was done was all stable and further workup done by oncology Dr. Johnson Patient have a EGD and colonoscopy done and all stable Patient also see also for the joint problems Patient's recent x-ray was all stable including the hip and the spine Patient also's see her [place] hardboard grinder for the hypothyroidism status post radiation treatmet Patient also had a C-spine surgery done in 2011 for the severe spinal stenosis Patients denied any chest pain denied any shortness of the breath Patient stopped taking the Celebrex and hydrochlorothiazide and other medications since last several days due to the upcoming colonoscopy and the Celebrex was stopped almost a week they may be a contributed patient have a some swelling in the joint Hospital Course Hospital Course: This is a 76-year-old female admitted because of the pneumonia and the fever and weakness and patient was started on IV Rocephin and Zithromax patient's response very well. Since chest x-ray is clear cough is already clear and patient also have a urinary tract infections which is sensitive to the Rocephin and patient was put on the p.o. Keflex on discharge Patient also had a CT spine of the lumbar done with so some spinal stenosis in patients follow outpatient spine clinic which patient is seen in the past Patient's sed rate was 102 and patient recently stopped the Celebrex due to the upcoming colonoscopy and after that patient started developing the swelling of the joint and pain and patient was restart the Celebrex and patient's feeling much better and patient was also put a short dose of the steroid Patient seen by the [facility] Dr. De Luna in the past and patient's all rheumatoid workup was negative but patient still needs to see the further evaluations with worsening the joint symptoms Patients also see oncology and hematology Dr. Johnson and that recently have a PET scan bone scan and more extensive workup done and was all stable and patient 's continues to follow with them Patient was recently have an endoscopy and colonoscopy done and was all stable for the anemia Patient otherwise remained stable in the hospitals patients require a rehab and physical therapy Patient had a fall precautions Check a CBC and Chem-7 in 1 week and check a sed rate Discussed with the daughter about the patient's conditions and discussed with the patient about the all the test reports and follow-up plan Physical Exam Vital Signs: Temp Pulse Resp BP Pulse Ox 97.9 F 70 18 134/77 H 99 12/02/16 08:36 12/02/16 08:36 12/02/16 08:36 12/02/16 08:36 12/02/16 08:36 Intake & Output 12/01/16 12/02/16 12/03/16 06:59 06:59 06:59 Intake Total 1210 2800 Output Total 500 1950 Balance 710 850 Weight 76.6 kg 76.6 kg Results Laboratory Results: 12/02/16 05:12 12/02/16 05:12 12/02/16 12/02/16 05:12 05:12 WBC 8.4 RBC 4.78 Hgb 9.8 L Hct 32.5 L MCV 68 L MCH 20.4 L MCHC 30.1 L RDW 16.6 H Plt Count 280 Seg Neutrophils % 82.6 H Lymphocytes % 10.8 L Monocytes % 5.8 Eosinophils % 0.5 Basophils % 0.3 Absolute Neutrophils 7.0 Absolute Lymphocytes 0.9 Absolute Monocytes 0.5 Absolute Eosinophils 0.0 Absolute Basophils 0.0 Sodium 135.9 L Potassium 4.0 Chloride 99 Carbon Dioxide 30 Anion Gap 7 BUN 10 Creatinine 0.51 L Est GFR ( Amer) > 60 Est GFR (Non-Af Amer) > 60 Glucose 86 Calcium 9.3 11/30/16 18:45 Clean Catch Midstream Urine Culture - Final Enterococcus Faecalis(Group D) 11/30/16 11/30/16 14:59 14:59 Creatine Kinase 154 H NT-Pro-B Natriuret Pep 93 Impressions: Chest X-Ray 11/30/16 14:03 IMPRESSION: NO SIGNIFICANT RADIOGRAPHIC FINDING IN THE CHEST. Lumbar Spine CT 12/01/16 00:00 IMPRESSION: Significant central canal stenosis at L3-4 and L4-5 Transfer Plan - Time Spent with Patient Time spent with patient: Greater than 30 Minutes Plan Time Spent: Greater than 30 Minutes - Discharge to the rehab follow [facility] an outpatient spine clinic Fall precautions Check CBC and Chem-7 in 1 week Finished antibiotic course and repeat the urine culture is
[2016-12-02 15:38] LABS: ALBUMIN 3 2.9 g/dL (2.9-4.4); ALPHA-1-GLOBULIN 0.5 g/dL (0.0-0.4); ALPHA-2-GLOBULIN 3 1.1 g/dL (0.4-1.0); BETA GLOBULIN 1.1 g/dL (0.7-1.3); GLOBULIN TTL 3.9 g/dL (2.2-3.9); IMMUNOGLOBULIN A 249 mg/dL (64-422); IMMUNOGLOBULIN G 1273 mg/dL (700-1600); IMMUNOGLOBULIN M 72 mg/dL (26-217); MONOCLONAL-SPIKE Not Observed g/dL (Not Observed); PROTEIN TOTAL SERUM 6.8 g/dL (6.0-8.5)
[2016-12-02] MEDS: CETIRIZINE 5 MG TABLET PO SCH (17:24)
[2016-12-02] MEDS: CEFTRIAXONE 1 GM/D5W RTU 1 GM/50 ML RTUPB IV SCH (17:24)
[2016-12-03] MEDS: LANSOPRAZOLE 15 MG TAB.RAP.DR PO SCH (05:48)
[2016-12-03] MEDS: AZITHROMYCIN 250 MG TABLET PO SCH (09:54)
[2016-12-03] MEDS: LEVOTHYROXINE SODIUM 0.088 MG TABLET PO SCH (09:54)
[2016-12-03] MEDS: METFORMIN HCL 500 MG TABLET PO SCH (09:54)
[2016-12-03] MEDS: CALCIUM CARBONATE 500 MG TABLET PO SCH (09:54)
[2016-12-03] MEDS: ASPIRIN 81 MG TABLET, ENT COATED PO SCH (09:54)
[2016-12-03] MEDS: PREDNISONE 20 MG TABLET PO SCH (09:55)
[2016-12-03] MEDS: FLUTICASONE NASAL SPRAY 50 MCG/SPRY 120 SPRAY/16 GM NASL SCH (09:55)
[2016-12-03] MEDS: ENALAPRIL MALEATE 10 MG TABLET PO SCH (09:55)
[2016-12-03] MEDS: CELECOXIB 100 MG CAPSULE PO SCH (09:55)
[2016-12-03] MEDS: CYCLOSPORINE 0.05% OPH EMULSIO 0.4 ML DROPERETTE OU SCH (09:55)
[2016-12-03] MEDS: GUAIFENESIN 600 MG TABLET.SA PO SCH (09:55)
[2016-12-03] MEDS: GABAPENTIN 300 MG CAPSULE PO SCH (09:55)
[2016-12-03] MEDS: ENOXAPARIN SODIUM INJ 40 MG/0.4 ML DISP.SYRIN SUBCUT SCH (09:56)
[2016-12-03] MEDS: POLYETHYLENE GLYCOL 3350 POWDER 17 GM/1 PACKET PO SCH (09:57)
[2016-12-03 11:33] LABS: LYME DISEASE IGG AND IGM AB <0.91 ISR (0.00-0.90)
[2016-12-03 12:41] VITALS: BP 149/79
[2016-12-06 16:39] LABS: M-SPIKE % UR Not Observed % (Not Observed)
== END 2016-12-03 13:10 | DRG 190 ==
LOC: 4S 13:49 → OBSVTOIN 14:01
PROVIDERS: ADMIT Family Medicine; ATTEND Family Medicine
DX: J44.0 Chronic obstructive pulmonary disease with (acute) lower respiratory infection (principal); J18.9 Pneumonia, unspecified organism; N39.0 Urinary tract infection, site not specified; M13.80 Other specified arthritis, unspecified site; I10 Essential (primary) hypertension; E11.9 Type 2 diabetes mellitus without complications; E78.5 Hyperlipidemia, unspecified; D64.9 Anemia, unspecified; I25.10 Atherosclerotic heart disease of native coronary artery without angina pectoris; E03.9 Hypothyroidism, unspecified; K21.9 Gastro-esophageal reflux disease without esophagitis; M48.00 Spinal stenosis, site unspecified; Z79.82 Long term (current) use of aspirin; Z79.84 Long term (current) use of oral hypoglycemic drugs; Z79.899 Other long term (current) drug therapy; Z85.3 Personal history of malignant neoplasm of breast; Z90.710 Acquired absence of both cervix and uterus; Z90.10 Acquired absence of unspecified breast and nipple
CPT/HCPCS: 36415; 71020; 72131; 73522; 80048; 80053; 82550; 82962; 83880; 84166; 85025; 85652; 86225; 86235; 86320; 86430; 86617; 86618; 87040; 87086; 87088; 87186; 93005; 93010; G8978-GP; G8979-GP; J0696; J1650; J3490; J7030; J7512

== ENCOUNTER → 2017-01-05 | Outpatient (CLI) | payer MEDICARE, OTHER ==
--- NOTE | 2017-01-06 14:00 | RADIOLOGY REPORT (SQ) ---
EXAM DESCRIPTION: MRI ABDOMEN COMBO COMPLETED DATE/TIME: 01/05/2017 2:38 pm REASON FOR STUDY: LIVER LESION (K76.9) K76.9 LIVER DISEASE, UNSPECIFIED COMPARISON: PET-CT exams 10/10/2010, 06/20/2014, 02/28/2016 CT abdomen and pelvis 03/12/2013, 02/12/2016 Abdominal ultrasound 08/31/2011 Whole-body bone scan 09/20/2016 Set TECHNIQUE: Multiplanar multisequence imaging performed without and with contrast including sagittal, axial and coronal T2, axial T1, axial gradient fat sat T1, axial, sagittal and coronal fat sat T1 po st contrast. CONTRAST TYPE AND DOSE: 20 mL IV ProHance gadolinium RENAL FUNCTION: GFR > 60. LIMITATIONS: None. FINDINGS: LIVER: Normal size. No dilated ducts. CBD normal. Few tiny less than 5 mm hepatic cysts. SPLEEN: Normal size. No focal lesions. PANCREAS: No masses. No adjacent inflammation or peripancreatic fluid collections. Pancreatic duct no t dilated. GALLBLADDER: No masses. No stones. No gallbladder wall thickening or pericholecystic fluid. ADRENAL GLANDS: No significant masses or asymmetry. RIGHT KIDNEY AND URETER: No masses. No hydronephrosis. LEFT KIDNEY AND URETER: No masses. No hydronephrosis. AORTA AND VESSELS: No aneurysm. No dissection. Renal arteries, SMA, celiac without stenosis. RETROPERITONEUM: No retroperitoneal adenopathy, hemorrhage or masses. BOWEL: Not well seen ABDOMINAL WALL AND PERITONEUM: No hernias. No free fluid. BONES: Convex leftward thoracic lumbar junction scoliosis OTHER: Surgical clips post bilateral mastectomy IMPRESSION: No worrisome liver masses TECHNICAL DOCUMENTATION: JOB ID: [id number] [employer]- All Rights Reserved
== END ==
LOC: RAD 12:48
PROVIDERS: ATTEND Internal Medicine Medical Oncology
DX: K76.9 Liver disease, unspecified (principal); M41.86 Other forms of scoliosis, lumbar region; M41.84 Other forms of scoliosis, thoracic region
CPT/HCPCS: 74183; A9576

== ENCOUNTER → 2017-01-22 | Outpatient (CLI) | payer MEDICARE, OTHER ==
--- NOTE | 2017-01-23 10:11 | RADIOLOGY REPORT (SQ) ---
EXAM DESCRIPTION: PET CT SKULL/THIGH COMPLETED DATE/TIME: 01/22/2017 9:03 pm REASON FOR STUDY: BREAST CANCER C50.919 MALIGNANT NEOPLASM OF UNSP SITE OF UNSPECIFIED FEMAL COMPARISON: 02/28/2016 RADIONUCLIDE AND DOSE: 11.5 mCi F18 FDG The route of agent administration: Intravenous FASTING BLOOD SUGAR: 70 mg/dl CONTRAST TYPE AND DOSE: No CT contrast given. TECHNIQUE: Blood glucose level was verified. Above dose of FDG was injected intravenously. 2-D seg mented attenuation correction images were obtained from the base of the skull to the midthighs. Nonc ontrast CT images were obtained for attenuation correction and fusion with emission images. CT image s were performed without oral or intravenous contrast and are not sensitive for parenchymal lesions. A series of overlapping emission PET images were obtained. Images reviewed and manipulated at [facility] work station by the radiologist. Images stored on PACS. LIMITATIONS: None. FINDINGS: HEAD AND NECK: No areas of abnormal metabolic activity in the soft tissues of the head and neck. CHEST: No areas of abnormal metabolic activity in the chest. ABDOMEN AND PELVIS: No areas of abnormal metabolic activity in the abdomen or pelvis. Expected physi ologic activity is present in the genitourinary system and bowel. PROXIMAL LOWER EXTREMITIES: No areas of abnormal metabolic activity in the soft tissues of the lower extremities. BONES: No abnormal metabolic activity in the visualized skeleton. ADDITIONAL CT FINDINGS: Cardiomegaly. Chronic interstitial lung disease. Diverticulosis. OTHER: No other significant findings. IMPRESSION: No evidence of local recurrence or metastatic disease. TECHNICAL DOCUMENTATION: JOB ID: [id number] [employer]- All Rights Reserved
== END ==
LOC: RAD 17:35
PROVIDERS: ATTEND Internal Medicine Medical Oncology
DX: C50.919 Malignant neoplasm of unspecified site of unspecified female breast (principal)
CPT/HCPCS: 78815; A9552

== ENCOUNTER 2017-06-28 07:56 | Day surgery (SDC) | payer MEDICARE, OTHER ==
[~2017-06-28 07:56] MED LIST: KETOROLAC TROMETHAMINE 0.45% 4 DROP/0.4 ML DROPERETTE OS PRN
[2017-06-28] MEDS: CYCLOPENTOLATE 0.2%/PHENYLEPHRINE 1% OPH SOLN 2 ML OS PRN ×3 (08:30→08:50)
[2017-06-28] MEDS: TROPICAMIDE 1% OPH SOLN 3 ML OS PRN ×3 (08:30→08:50)
[2017-06-28] MEDS: TETRACAINE HCL 0.5% OPH SOLN 0.6 ML DROPERETTE OS PRN ×4 (08:31→08:57)
[2017-06-28] MEDS: BESIFLOXACIN HCL 0.6% OPH SUSP 5 ML BOTTLE OS PRN ×4 (08:31→09:28)
[2017-06-28] MEDS: EPINEPHRINE INJ/PF 1 MG/1 ML AMPULE ONE ×2 (09:11)
[2017-06-28] MEDS: LIDOCAINE 1% INJ-PF (10 MG/ML) 30 ML SDV ONE ×2 (09:11)
[2017-06-28] MEDS: CHONDR SU A NA/HYALUR INTRAOC KIT (SURGICARE) ONE ×2 (09:11)
[2017-06-28] MEDS: TOBRAMYCIN SULFATE/DEXAMETH OPH OINTMENT 3.5 GM ONE ×2 (09:28)
== END 2017-06-28 10:19 | disposition home or self-care (01) ==
LOC: SC 07:56
PROVIDERS: ATTEND Ophthalmology
PROC: 08RK3JZ Replacement of Left Lens with Synthetic Substitute, Percutaneous Approach (ICD-10-PCS; 2017-06-28)
PROC: 089330Z Drainage of Left Anterior Chamber with Drainage Device, Percutaneous Approach (ICD-10-PCS; principal; 2017-06-28 09:00)
DX: H25.12 Age-related nuclear cataract, left eye (principal); H40.1121 Primary open-angle glaucoma, left eye, mild stage; M19.90 Unspecified osteoarthritis, unspecified site; J44.9 Chronic obstructive pulmonary disease, unspecified; E11.9 Type 2 diabetes mellitus without complications; E03.9 Hypothyroidism, unspecified; E78.00 Pure hypercholesterolemia, unspecified; Z96.652 Presence of left artificial knee joint; D64.9 Anemia, unspecified; K21.9 Gastro-esophageal reflux disease without esophagitis; G47.30 Sleep apnea, unspecified; Z79.899 Other long term (current) drug therapy; Z79.82 Long term (current) use of aspirin; Z79.1 Long term (current) use of non-steroidal anti-inflammatories (NSAID); Z79.891 Long term (current) use of opiate analgesic; Z79.84 Long term (current) use of oral hypoglycemic drugs
CPT/HCPCS: 0191T; 66984; 142; 82962; C1783; J0171; J3490; V2630

== ENCOUNTER 2017-07-12 08:48 | Day surgery (SDC) | payer MEDICARE, OTHER ==
[~2017-07-12 08:48] MED LIST changes: +KETOROLAC TROMETHAMINE 0.45% 4 DROP/0.4 ML DROPERETTE OD PRN; -KETOROLAC TROMETHAMINE 0.45% 4 DROP/0.4 ML DROPERETTE OS PRN
[2017-07-12] MEDS ORDERED: EPINEPHRINE INJ/PF 1 MG/1 ML AMPULE ONE (09:39)
[2017-07-12] MEDS ORDERED: LIDOCAINE 1% INJ-PF (10 MG/ML) 30 ML SDV ONE (09:39)
[2017-07-12] MEDS ORDERED: CHONDR SU A NA/HYALUR INTRAOC KIT (SURGICARE) ONE (09:39)
[2017-07-12] MEDS ORDERED: TOBRAMYCIN SULFATE/DEXAMETH OPH OINTMENT 3.5 GM ONE (09:39)
[2017-07-12] MEDS: TETRACAINE HCL 0.5% OPH SOLN 0.6 ML DROPERETTE OD PRN ×3 (09:41→10:00)
[2017-07-12] MEDS: BESIFLOXACIN HCL 0.6% OPH SUSP 5 ML BOTTLE OD PRN ×3 (09:42→10:22)
[2017-07-12] MEDS: TROPICAMIDE 1% OPH SOLN 3 ML OD PRN ×3 (09:42→09:54)
[2017-07-12] MEDS: CYCLOPENTOLATE 0.2%/PHENYLEPHRINE 1% OPH SOLN 2 ML OD PRN ×3 (09:42→09:54)
== END 2017-07-12 11:14 | disposition home or self-care (01) ==
LOC: SC 08:48
PROVIDERS: ATTEND Ophthalmology
PROC: 089230Z Drainage of Right Anterior Chamber with Drainage Device, Percutaneous Approach (ICD-10-PCS; 2017-07-12)
PROC: 08RJ3JZ Replacement of Right Lens with Synthetic Substitute, Percutaneous Approach (ICD-10-PCS; principal; 2017-07-12 10:00)
DX: H25.11 Age-related nuclear cataract, right eye (principal); H40.1111 Primary open-angle glaucoma, right eye, mild stage; Z98.42 Cataract extraction status, left eye; M19.90 Unspecified osteoarthritis, unspecified site; J44.9 Chronic obstructive pulmonary disease, unspecified; E11.9 Type 2 diabetes mellitus without complications; K21.9 Gastro-esophageal reflux disease without esophagitis; I10 Essential (primary) hypertension; E78.00 Pure hypercholesterolemia, unspecified; E03.9 Hypothyroidism, unspecified; Z96.652 Presence of left artificial knee joint; Z79.82 Long term (current) use of aspirin; Z79.899 Other long term (current) drug therapy; Z79.84 Long term (current) use of oral hypoglycemic drugs; Z79.1 Long term (current) use of non-steroidal anti-inflammatories (NSAID); Z85.3 Personal history of malignant neoplasm of breast
CPT/HCPCS: 0191T; 66984; 142; 82962; C1783; J0171; J3490; V2630

== ENCOUNTER → 2018-09-30 | Outpatient (CLI) | payer MEDICARE, OTHER ==
--- NOTE | 2018-10-01 10:00 | RADIOLOGY REPORT (SQ) ---
EXAM DESCRIPTION: PET CT SKULL/THIGH COMPLETED DATE/TIME: 10/01/2018 9:18 am REASON FOR STUDY: Z85.3 PERSONAL HISTORY OF MALIGNANT NEOPLASM OF BREAST Z85.3 PERSONAL HISTORY OF MALIGNANT NEOPLASM OF BREAST COMPARISON: 01/22/2017 RADIONUCLIDE AND DOSE: 10.87 mCi F18 FDG The route of agent administration: Intravenous FASTING BLOOD SUGAR: 73 mg/dl CONTRAST TYPE AND DOSE: No CT contrast given. TECHNIQUE: Blood glucose level was verified. Above dose of FDG was injected intravenously. 2-D seg mented attenuation correction images were obtained from the base of the skull to the midthighs. Nonc ontrast CT images were obtained for attenuation correction and fusion with emission images. CT image s were performed without oral or intravenous contrast and are not sensitive for parenchymal lesions. A series of overlapping emission PET images were obtained. Images reviewed and manipulated at [facility] work station by the radiologist. Images stored on PACS. LIMITATIONS: None. FINDINGS: HEAD AND NECK: No areas of abnormal metabolic activity in the soft tissues of the head and neck. CHEST: No areas of abnormal metabolic activity in the chest. ABDOMEN AND PELVIS: No areas of abnormal metabolic activity in the abdomen or pelvis. Expected physi ologic activity is present in the genitourinary system and bowel. PROXIMAL LOWER EXTREMITIES: No areas of abnormal metabolic activity in the soft tissues of the lower extremities. BONES: No abnormal metabolic activity in the visualized skeleton. ADDITIONAL CT FINDINGS: Cardiomegaly. Chronic interstitial lung disease. Diverticulosis. OTHER: No other significant findings. IMPRESSION: No evidence of local recurrence or metastatic disease. TECHNICAL DOCUMENTATION: JOB ID: [id number] [employer]- All Rights Reserved Reading location - IP/workstation name: [email or web address]
== END ==
LOC: RAD 15:33
PROVIDERS: ATTEND Internal Medicine Medical Oncology
DX: C50.811 Malignant neoplasm of overlapping sites of right female breast (principal); Z85.3 Personal history of malignant neoplasm of breast
CPT/HCPCS: 78815; A9552

== ENCOUNTER → 2018-10-05 | Outpatient (CLI) | payer MEDICARE, OTHER ==
--- NOTE | 2018-10-05 16:06 | RADIOLOGY REPORT (SQ) ---
EXAM DESCRIPTION: NM WHOLE BODY BONE SCAN COMPLETED DATE/TIME: 10/05/2018 3:54 pm REASON FOR STUDY: PERSONAL HX OF MALIGNANT NEOPLASM OF BREAST (Z85.3), OTHER ABN TUMOR MARKER Z85.3 PERSONAL HISTORY OF MALIGNANT NEOPLASM OF BREAST COMPARISON: PET-CT 09/30/2018, 01/22/2017 bone scan 09/20/2016 RADIONUCLIDE AND DOSE: 20.6 millicuries Tc99m MDP. The route of agent administration: Intravenous. ADDITIONAL DRUGS AND DOSES: None. TECHNIQUE: Routine delayed images at 3 hours post radionuclide injection acquired of the bony skelet on including anterior and posterior whole-body projections and additional focused images as needed. LIMITATIONS: None. FINDINGS: BONES: There is increased uptake at both shoulders, the right knee, the lumbar spine and b ilateral feet in characteristic locations for arthritis. These foci are similar compared to 7. No new foci of increased uptake worrisome for metastatic disease. KIDNEYS: Symmetric excretion without obstruction. OTHER: Thoracolumbar scoliosis, left knee replacement IMPRESSION: No bone scan evidence for metastatic disease COMMENT: Quality measure 147: Current bone scan is compared with any available plain radiographs, p rior bone scans, and CT/MRI. TECHNICAL DOCUMENTATION: JOB ID: [id number] [employer]- All Rights Reserved Reading location - IP/workstation name: [email or web address]
== END ==
LOC: RAD 10:53
PROVIDERS: ATTEND Internal Medicine Medical Oncology
DX: R97.8 Other abnormal tumor markers (principal); Z85.3 Personal history of malignant neoplasm of breast
CPT/HCPCS: 78306; A9561; Q9969

== ENCOUNTER → 2019-03-25 | Outpatient (CLI) | payer MEDICARE, OTHER ==
--- NOTE | 2019-03-25 14:42 | WOMENS IMAGING REPORT ---
EXAM DESCRIPTION: BONE DENSITY HIP/SPINE COMPLETED DATE/TIME: 03/25/2019 2:25 pm REASON FOR STUDY: Z78.0 ASYMPTOMATIC MENOPAUSAL STATE Z78.0 ASYMPTOMATIC MENOPAUSAL STATE COMPARISON: 10/12/2015 -04/07/2005 TECHNIQUE: Dual-Energy X-ray Absorptiometry (DEXA) of the AP Spine and Hip. LIMITATIONS: None. FINDINGS: LUMBAR SPINE: The bone mineral density (BMD) measured from L1-L4 in the AP projection correlates with a T-score of 0.3, which is normal as defined by the World Health Organization. BMD Change vs Baseline: +10% HIP: The bone mineral density (BMD) measured in the left hip correlates with a T-score of -0.4 in the femo ral neck, which is normal as defined by the World Health Organization. BMD Change vs Baseline: -12.3% 10 year Fracture Risk Assessment: Major Osteoporotic Fracture: Not available. Hip Fracture: Not available. IMPRESSION: 1. LUMBAR SPINE WHO CLASSIFICATION: Normal 2. HIP WHO CLASSIFICATION: Normal OVERALL ASSESSMENT: WHO CLASSIFICATION: Normal COMMENT: The World Health Organization defines low BMD as follows: T-score: Normal: Greater than -1.0 Osteopenia: Between -1.0 and -2.5 Osteoporosis: Less than -2.5 without fractures Established osteoporosis: Less than -2.5 with fractures In general, you may wish to consider: Diagnosis Treatment Follow-up DEXA Normal BMD Prevention 2-3 years Osteopenia Prevention/Therapy 1-2 years Osteoporosis Therapy Yearly TECHNICAL DOCUMENTATION: JOB ID: [id number] [employer]- All Rights Reserved Reading location - IP/workstation name: [email or web address]
== END ==
LOC: WI 13:03
PROVIDERS: ATTEND Family Medicine
DX: Z78.0 Asymptomatic menopausal state (principal)
CPT/HCPCS: 77080